=== PATIENT | male | born 1985 | race Caucasian/White ===

== ENCOUNTER 2023-08-22 13:03 | Outpatient (CLI) | payer OTHER | END 2023-08-22 13:15 | disposition home or self-care (01) | LOC: RAD 13:03 | DX: M75.01 Adhesive capsulitis of right shoulder (principal); M54.50 Low back pain, unspecified; M54.2 Cervicalgia ==

== ENCOUNTER 2024-01-03 07:06 | Outpatient (CLI) | payer OTHER | END 2024-01-03 07:15 | disposition home or self-care (01) | LOC: MRI 07:06 | DX: M54.2 Cervicalgia (principal); M54.50 Low back pain, unspecified; K59.00 Constipation, unspecified | CPT/HCPCS: 72141; 72148 ==

== ENCOUNTER 2024-02-16 12:11 | Outpatient (CLI) | payer OTHER | END 2024-02-16 12:18 | disposition home or self-care (01) | LOC: MRI 12:11 | DX: M85.60 Other cyst of bone, unspecified site (principal) | CPT/HCPCS: 70551 ==